=== PATIENT | female | born 1980 | race Caucasian/White ===

== ENCOUNTER 2018-04-25 08:52 | Outpatient (CLI) | payer OTHER | END 2018-04-25 15:33 | disposition home or self-care (01) | LOC: NUCLEAR 08:52 | DX: C50.411 Malignant neoplasm of upper-outer quadrant of right female breast (principal) | CPT/HCPCS: 78816; A9552 ==

== ENCOUNTER 2025-08-07 11:00 | Day surgery (SDC) | payer OTHER ==
[2025-08-03 13:45] VITALS: BP 108/71
[~2025-08-07] VITALS: Ht 160 cm; Wt 55.3 kg
[~2025-08-07 11:00] MED LIST: DAILY MULTIVIT1 EAC4 PO; PROBIOTIC250 MG PO; TAMOXIFEN CITRA20 MG PO
[2025-08-07] MEDS ORDERED: CHLORHEXIDINE GLUCONATE 120 ML BOTTLE TOP ONE (12:33)
[2025-08-07] MEDS ORDERED: POVIDONE-IODINE 118 ML BOTT TOP ONE (12:33)
[2025-08-07] MEDS ORDERED: MORPHINE SULFATE 4 MG/ML VIAL IV PRN (14:00)
[2025-08-07] MEDS ORDERED: KETOROLAC TROMETHAMINE 30 MG VIAL IV PRN (14:15)
[2025-08-07] MEDS ORDERED: ONDANSETRON HCL 2 MG/ML VIAL IV PRN (14:15)
== END 2025-08-07 18:50 | disposition home or self-care (01) ==
LOC: CIR.AMB 11:00
PROVIDERS: ATTEND Obstetrics & Gynecology
DX: N85.00 Endometrial hyperplasia, unspecified (principal)